=== PATIENT | female | born 1955 | race Caucasian/White ===

== ENCOUNTER 2023-10-20 16:53 | Inpatient (IN) | payer MEDICARE ==
[~2023-10-20] VITALS: Ht 157.4 cm; Wt 63.5 kg
[2023-10-20] MEDS ORDERED: DEPAKOTE ER500 MG PO (18:46)
[2023-10-20] MEDS ORDERED: LEXAPRO10 MG PO (18:47)
[2023-10-20] MEDS ORDERED: NAMENDA-5 PO (18:48)
[2023-10-20] MEDS ORDERED: ATIVAN0.5 MG PO (18:49)
[2023-10-20] MEDS ORDERED: EXCEDRIN MIGRA1 EAC1 PO (18:52)
[2023-10-20] MEDS ORDERED: MUCINEX D ER 11 EACH PO (18:55)
[2023-10-20] MEDS ORDERED: SUDAFED 12HR120 MG PO (19:00)
[2023-10-20] MEDS ORDERED: TYLENOL325 M1 PO (19:01)
[2023-10-20] MEDS ORDERED: Water, Sterile 10 ML VIAL IM PRN (19:05)
[2023-10-20] MEDS ORDERED: Ziprasidone Mesylate 20 MG VIAL IM PRN (19:05)
[2023-10-20] MEDS ORDERED: LORazepam 1 MG TAB PO PRN (19:05)
[2023-10-20] MEDS ORDERED: ACETAMINOPHEN 325 MG TAB PO PRN (19:10)
[2023-10-20] MEDS ORDERED: MG-AL HYDROXIDE/SIMETICONE 30 ML UDC PO PRN (19:10)
[2023-10-20] MEDS ORDERED: Magnesium Hydroxide 30 ML UDC PO PRN (19:10)
[2023-10-20] MEDS ORDERED: Menthol/Zinc Oxide 4 GM THIN T PRN (19:15)
[2023-10-20 20:00] VITALS: BP 92/58
[2023-10-20] MEDS ORDERED: RISPERIDONE 0.5 MG ODT OGT SCH (21:00)
[2023-10-21 07:47] LABS: BASO % 0.6 % (0.0-1.0); EOS # 0.1 10*3/uL (0.0-0.4); HEMATOCRIT 40.1 % (37.0-47.0); LYMPH # 1.3 10*3/uL (1.3-4.4); LYMPH % 28.6 % (27.0-41.0); MEAN CELL VOLUME 99.8 fl (81.0-99.0); MEAN CORPUSCULAR HGB 31.1 pg (27.0-31.0); MEAN CORPUSCULAR HGB CONC 31.2 g/dl (33.0-37.0); MEAN PLATELET VOLUME 12.6 fl (9.6-12.3); MONO # 0.6 10*3/uL (0.1-1.0); MONO % 12.8 % (3.0-9.0); NEUT # 2.5 10*3/uL (2.3-7.9); NEUT % 54.8 % (47.0-73.0); PLATELET COUNT AUTOMATED 109 10*3/uL (130-400); RED BLOOD COUNT 4.02 10*6/uL (4.10-5.10); RED CELL DISTRI WIDTH 13.8 % (0-14.5); WHITE BLOOD COUNT 4.6 10*3/uL (4.8-10.8)
[2023-10-21 07:58] VITALS: BP 111/85
[2023-10-21] MEDS ORDERED: Rivastigmine Tartrate 4.6 MG/24 HR PATCH T SCH (09:00)
[2023-10-21 09:01] LABS: ALKALINE PHOSPHATASE 44 U/L (46-116); BUN 9 mg/dl (9-23); CHLORIDE 105 mmol/L (98-107); CHOLESTEROL 166 mg/dL (<200); LDL CHOLESTEROL 108 mg/dL (9-159); POTASSIUM 3.4 mmol/L (3.4-5.1); SGPT/ALT 29 U/L (5-49); TOTAL PROTEIN 6.4 gm/dL (6.0-8.0); TRIGLYCERIDES 92 mg/dl (<150)
[2023-10-21 09:02] LABS: VITAMIN D, 25-HYDROXY 43.8 ng/mL (30-100)
[2023-10-21] MEDS ORDERED: Memantine Hydrochloride 5 MG TAB PO SCH (21:00)
[2023-10-21] MEDS ORDERED: Mirtazapine 15 MG TAB.RAPDIS PO SCH (21:00)
[2023-10-22 08:00] VITALS: BP 120/68
[2023-10-22 20:00] VITALS: BP 113/66
[2023-10-23 07:58] VITALS: BP 119/75
[2023-10-23] MEDS ORDERED: PALIPERIDONE PALMITATE 234 MG INJECTION IM ONE (08:50)
[2023-10-23 20:00] VITALS: BP 112/73
[2023-10-24 07:28] VITALS: BP 122/74
[2023-10-24] MEDS ORDERED: Rivastigmine Tartrate 9.5 MG/24 HR PATCH T SCH (09:00)
[2023-10-24 20:00] VITALS: BP 130/80
[2023-10-25 08:00] VITALS: BP 106/58
[2023-10-25] MEDS ORDERED: LORazepam 1 MG TAB PO SCH (09:00)
[2023-10-25] MEDS ORDERED: Memantine Hydrochloride 5 MG TAB PO SCH (09:00)
[2023-10-25] MEDS ORDERED: PALIPERIDONE PALMITATE 156 MG INJECTION IM SCH (09:00)
[2023-10-25 20:00] VITALS: BP 116/68
[2023-10-26 08:03] VITALS: BP 100/52
[2023-10-26 20:00] VITALS: BP 102/62
[2023-10-26] MEDS ORDERED: RAMELTEON 8 MG TAB PO SCH (21:00)
[2023-10-27 06:31] LABS: BASO # 0.1 10*3/uL (0.0-0.1); BASO % 1.3 % (0.0-1.0); EOS # 0.2 10*3/uL (0.0-0.4); EOS % 4.9 % (1.0-4.0); HEMATOCRIT 37.3 % (37.0-47.0); LYMPH # 1.4 10*3/uL (1.3-4.4); LYMPH % 36.7 % (27.0-41.0); MEAN CELL VOLUME 95.4 fl (81.0-99.0); MEAN CORPUSCULAR HGB 31.5 pg (27.0-31.0); MEAN PLATELET VOLUME 12.3 fl (9.6-12.3); MONO # 0.6 10*3/uL (0.1-1.0); MONO % 15.6 % (3.0-9.0); NEUT # 1.5 10*3/uL (2.3-7.9); NEUT % 41.5 % (47.0-73.0); PLATELET COUNT AUTOMATED 114 10*3/uL (130-400); RED BLOOD COUNT 3.91 10*6/uL (4.10-5.10); RED CELL DISTRI WIDTH 14.1 % (0-14.5); WHITE BLOOD COUNT 3.7 10*3/uL (4.8-10.8)
[2023-10-27 06:55] LABS: BUN 9 mg/dl (9-23); CHLORIDE 107 mmol/L (98-107); POTASSIUM 3.5 mmol/L (3.4-5.1)
[2023-10-27 08:00] VITALS: BP 116/59
[2023-10-27] MEDS ORDERED: RIVASTIGMINE 13.3 MG/24 HR TDM T SCH (09:00)
[2023-10-27] MEDS ORDERED: Memantine Hydrochloride 10 MG TAB PO SCH (21:00)
[2023-10-28 07:54] VITALS: BP 123/83
[2023-10-28 20:00] VITALS: BP 90/60
[2023-10-29 08:00] VITALS: BP 115/62
[2023-10-29 20:00] VITALS: BP 122/71
[2023-10-30 08:45] VITALS: BP 119/70
[2023-10-30 20:00] VITALS: BP 120/78
[2023-10-31 07:36] VITALS: BP 110/60
[2023-10-31 19:11] VITALS: BP 122/62
[2023-11-01 08:00] VITALS: BP 123/97
[2023-11-01] MEDS ORDERED: LORazepam 1 MG TAB PO SCH ×2 (13:00)
[2023-11-01 20:00] VITALS: BP 148/80
[2023-11-02] MEDS ORDERED: LORAZEPAM1 MG PO (07:38)
[2023-11-02] MEDS ORDERED: INVEGA SUSTENN156 MG IM (07:38)
[2023-11-02] MEDS ORDERED: MIRTAZAPINE15 M1 PO (07:38)
[2023-11-02] MEDS ORDERED: RAMELTEON8 MG PO (07:38)
[2023-11-02] MEDS ORDERED: RIVASTIGMINE1 EAC2 T (07:38)
[2023-11-02 07:49] VITALS: BP 105/56
== END 2023-11-02 13:18 | DRG 883 ==
LOC: 3N 16:53
PROVIDERS: Nurse Practitioner; ADMIT Psychiatry & Neurology Psychiatry; ATTEND Psychiatry & Neurology Psychiatry
PROC: GZHZZZZ Group Psychotherapy (ICD-10-PCS; principal; 2023-10-21)
PROC: GZ51ZZZ Individual Psychotherapy, Behavioral (ICD-10-PCS; 2023-10-21)
DX: F63.81 Intermittent explosive disorder (principal); F02.B11 Dementia in other diseases classified elsewhere, moderate, with agitation; F02.B2 Dementia in other diseases classified elsewhere, moderate, with psychotic disturbance; G30.9 Alzheimer's disease, unspecified; D69.6 Thrombocytopenia, unspecified; F41.9 Anxiety disorder, unspecified; M81.0 Age-related osteoporosis without current pathological fracture; D64.9 Anemia, unspecified; F33.3 Major depressive disorder, recurrent, severe with psychotic symptoms; Z82.49 Family history of ischemic heart disease and other diseases of the circulatory system; Z83.3 Family history of diabetes mellitus; Z79.82 Long term (current) use of aspirin; Z79.1 Long term (current) use of non-steroidal anti-inflammatories (NSAID); Z79.899 Other long term (current) drug therapy